=== PATIENT | female | born 1955 | race Caucasian/White ===

== ENCOUNTER 2020-08-27 13:08 | Inpatient (IN) | payer MEDICAID ==
[~2020-08-27] VITALS: Ht 160 cm; Wt 69.9 kg
[2020-08-27 13:57] LABS: CLARITY URINE CLEAR (CLEAR); COLOR URINE YELLOW (YELLOW); KETONES URINE NEGATIVE (NEGATIVE); LEUKOCYTE ESTERASE URINE NEGATIVE (NEGATIVE); NITRITE URINE NEGATIVE (NEGATIVE); OCCULT BLOOD URINE TRACE (NEGATIVE); PROTEIN URINE 3+ (NEGATIVE); UROBILINOGEN URINE 0.2 E.U./dL (0.2-1.0)
[2020-08-27 14:00] LABS: HEMATOCRIT. 31.8 % (36.0-48.0); HEMOGLOBIN. 10.4 g/dL (12.0-16.0); MEAN CORPUSCULAR HEMOGLOBIN 29.9 pg (28.0-32.0); MEAN CORPUSCULAR VOLUME 91.3 fL (81.0-99.0); MEAN PLATELET VOLUME 6.2 fl (7.4-10.4); PLATELET 475 x1000/uL (130-400); RED BLOOD CELL COUNT 3.48 mill/uL (4.2-5.4); RED CELL DISTRIBUTION WIDTH 13.8 % (11.6-14.6)
[2020-08-27] MEDS ORDERED: LABETALOL 5MG/ML SYR 20 MG/4 ML SYRINGE IV ONE ×2 (14:00→18:30)
[2020-08-27 14:04] LABS: CHLORIDE 104 mEq/L (98-107)
[2020-08-27 14:06] LABS: PROTHROMBIN TIME 10.5 sec (9.6-11.0)
[2020-08-27 14:06] LABS: BG BASE EXCESS -0.4 mmol/L (-2.0-2.0); BG CARBOXYHEMOGLOBIN 0.3 % (0.5-1.5); BG DEOXYHEMOGLOBIN 3.5 % (0.0-5.0); BG FRACTION INSPIRED OXYGEN 21; BG HCO3 ACT 23.9 mmol/L (22.0-26.0); BG METHEMOGLOBIN 0.3 % (0.0-1.5); BG OXYGEN SATURATION 96.5 % (92.0-98.5); BG OXYHEMOGLOBIN 95.9 % (94.0-97.0); BG PCO2 38.2 mmHg (35.0-45.0); BG PH 7.415 (7.350-7.450); BG PO2 90.7 mmHg (75.0-100.0); BG SAMPLE SITE RIGHT BRACHIAL; BG TOTAL HEMOGLOBIN 10.8 g/dL (12.0-18.0); BG VENT MODE ROOM AIR
[2020-08-27 14:08] LABS: ETHANOL BLOOD < 10 mg/dL
[2020-08-27 14:20] LABS: *AMPHETAMINES SCREEN URINE NEGATIVE (NEGATIVE); *BARBITURATES SCREEN URINE NEGATIVE (NEGATIVE); *BENZODIAZEPINES SCREEN URINE NEGATIVE (NEGATIVE); METHADONE URINE SCREEN NEGATIVE (NEGATIVE); OPIATES URINE SCREEN PRESUMTIVE POSITIVE (NEGATIVE)
[2020-08-27 14:21] LABS: *COCAINE SCREEN URINE NEGATIVE (NEGATIVE); CANNABINOID URINE SCREEN NEGATIVE (NEGATIVE); PHENCYCLIDINE URINE SCREEN NEGATIVE (NEGATIVE)
[2020-08-27] MEDS ORDERED: MORPHINE SULFATE 4 MG/ML CPJ (NOT FOR IM USE) IV ONE ×2 (14:30→18:30)
[2020-08-27] MEDS ORDERED: POTASSIUM CHLORIDE 20MEQ TABLET SR PO NR (14:30)
[2020-08-27 14:40] LABS: PLATELET ESTIMATE SLIGHTLY INCREASED
[2020-08-27] MEDS ORDERED: POTASSIUM CHLORIDE INJ 40 MEQ in DEXT 5% WATER 500 ML IV ONE (15:00)
[2020-08-27] MEDS ORDERED: SODIUM CHLORIDE 0.9% 1,000 ML IV ONE (15:30)
[2020-08-27] MEDS ORDERED: DEXTROSE 50% WATER 50ML SYRINGE IV ONE (17:45)
[2020-08-27] MEDS ORDERED: DEXT 10% WATER 1,000 ML IV SCH (18:00)
[2020-08-28] MEDS ORDERED: DEXTROSE 50% WATER 50ML SYRINGE IV NR (00:45)
[2020-08-28] MEDS ORDERED: MORPHINE SULFATE 4 MG/ML CPJ (NOT FOR IM USE) IV NR (00:45)
[2020-08-28 02:45] VITALS: BP 155/72
[2020-08-28 04:00] VITALS: BP 172/74
[2020-08-28] MEDS ORDERED: HYDROCODONE/ACETAMINOPHEN 5/325MG TABLET PO PRN (04:00)
[2020-08-28] MEDS ORDERED: ACETAMINOPHEN 325MG TABLET PO PRN (04:00)
[2020-08-28] MEDS ORDERED: DEXTROSE 50% WATER 50ML SYRINGE IV PRN (04:15)
[2020-08-28] MEDS: CLONIDINE 0.3MG TABLET PO PRN ×2 (04:33→21:20)
[2020-08-28 07:46] VITALS: BP 157/75
[2020-08-28] MEDS: BLOOD SUGAR DIAGNOSTIC STRIP TEST SCH ×4 (08:02→21:20)
[2020-08-28] MEDS: DOCUSATE SODIUM 100MG CAPSULE PO SCH ×2 (08:51→17:28)
[2020-08-28] MEDS: LOSARTAN POTASSIUM 100 MG TABLET PO SCH (08:51)
[2020-08-28] MEDS: METFORMIN HCL 500MG TABLET PO SCH ×2 (08:51→17:28)
[2020-08-28 11:52] VITALS: BP 163/78
[2020-08-28] MEDS: HYDROCODONE/ACETAMINOPHEN 10/325MG TABLET PO PRN ×3 (12:12→22:38)
[2020-08-28 15:48] VITALS: BP 149/75
[2020-08-28 20:00] VITALS: BP 169/81
[2020-08-28] MEDS ORDERED: ATORVASTATIN CALCIUM 40MG TABLET PO SCH (21:00)
[2020-08-29] VITALS: BP 149/80
[2020-08-29 04:00] VITALS: BP 164/78
[2020-08-29] MEDS: CLONIDINE 0.3MG TABLET PO PRN ×2 (06:13→13:07)
[2020-08-29] MEDS: HYDROCODONE/ACETAMINOPHEN 10/325MG TABLET PO PRN (06:14)
[2020-08-29 06:41] LABS: BASOPHILS % 0.5 % (0.0-2.0); EOSINOPHILS % 2.6 % (0.0-5.0); HEMATOCRIT. 24.9 % (36.0-48.0); HEMOGLOBIN. 8.3 g/dL (12.0-16.0); LYMPHOCYTES % 20.7 % (20.0-50.0); MEAN CORPUSCULAR HEMOGLOBIN 30.6 pg (28.0-32.0); MEAN CORPUSCULAR VOLUME 91.8 fL (81.0-99.0); MEAN PLATELET VOLUME 6.7 fl (7.4-10.4); MONOCYTES % 8.8 % (2.0-8.0); NEUTROPHILS % 67.4 % (40.0-76.0); PLATELET 358 x1000/uL (130-400); RED BLOOD CELL COUNT 2.71 mill/uL (4.2-5.4); RED CELL DISTRIBUTION WIDTH 13.7 % (11.6-14.6)
[2020-08-29] MEDS: BLOOD SUGAR DIAGNOSTIC STRIP TEST SCH ×3 (07:20→17:30)
[2020-08-29 08:00] VITALS: BP 134/63
[2020-08-29] MEDS: DOCUSATE SODIUM 100MG CAPSULE PO SCH ×2 (08:49→17:29)
[2020-08-29] MEDS: LOSARTAN POTASSIUM 100 MG TABLET PO SCH (08:49)
[2020-08-29] MEDS: METFORMIN HCL 500MG TABLET PO SCH ×2 (08:49→17:36)
[2020-08-29] MEDS ORDERED: ASPIRIN 81MG TABLET PO SCH (09:00)
[2020-08-29] MEDS ORDERED: AMLODIPINE 10MG TABLET PO SCH (09:00)
[2020-08-29 12:00] VITALS: BP 181/83
[2020-08-29] MEDS ORDERED: HYDRALAZINE HCL 100MG TABLET PO SCH (15:15)
[2020-08-29 15:49] VITALS: BP 139/64
[2020-08-29 16:00] VITALS: BP 139/64
== END 2020-08-29 18:10 | disposition short-term general hospital (02) | DRG 420 ==
LOC: ER 13:26 → 6EST 21:20 → ENRESERV 22:17
PROVIDERS: ADMIT Internal Medicine; ATTEND Internal Medicine
DX: E11.649 Type 2 diabetes mellitus with hypoglycemia without coma (principal); I16.0 Hypertensive urgency; E43 Unspecified severe protein-calorie malnutrition; D64.9 Anemia, unspecified; E87.6 Hypokalemia; I10 Essential (primary) hypertension; E11.52 Type 2 diabetes mellitus with diabetic peripheral angiopathy with gangrene; I96 Gangrene, not elsewhere classified; Z86.73 Personal history of transient ischemic attack (TIA), and cerebral infarction without residual deficits; Z88.8 Allergy status to other drugs, medicaments and biological substances; Z68.27 Body mass index [BMI] 27.0-27.9, adult; Z89.422 Acquired absence of other left toe(s)
CPT/HCPCS: 36415; 36600; 71045; 73610; 73630; 80048; 80053; 80305; 80320; 81003; 82375; 82805; 82962; 83036; 83605; 84484; 85025; 93005; 93306; 93880; 93923; 99285; J2270; J3480; J3490; J7060; G0480